=== PATIENT | male | born 1945 | race African-American/Black ===

== ENCOUNTER 2022-11-11 17:55 | Emergency (ER) | payer MEDICARE ==
[~2022-11-11] VITALS: Ht 185.4 cm; Wt 82.0 kg
[2022-11-11 18:07] VITALS: BP 150/94
[2022-11-11] MEDS ORDERED: ACETAMINOPHEN 325MG TABLET PO ONE (18:45)
[2022-11-11] MEDS ORDERED: LIDOCAINE HCL 1% 20ML VIAL (Pyxis) INJ INFIL ONE (18:45)
== END 2022-11-11 21:25 | disposition home or self-care (01) ==
LOC: ER 17:55
DX: S01.511A Laceration without foreign body of lip, initial encounter (principal); S09.90XA Unspecified injury of head, initial encounter; Z88.0 Allergy status to penicillin; W01.0XXA Fall on same level from slipping, tripping and stumbling without subsequent striking against object, initial encounter; Y93.89 Activity, other specified; Y92.89 Other specified places as the place of occurrence of the external cause; Y99.8 Other external cause status
CPT/HCPCS: 12013; 70450; 99284; J3490

== ENCOUNTER 2023-02-22 09:31 | Emergency (ER) | payer MEDICARE, MEDICAID, OTHER ==
[~2023-02-22] VITALS: Ht 190.5 cm; Wt 82.0 kg
[2023-02-22 09:51] VITALS: BP 125/82; O2SAT 100
[2023-02-22] MEDS ORDERED: IBUP-2028 MT (11:44)
[2023-02-22 11:53] VITALS: PULSE 74; RESP 16; TEMP 98.3
== END 2023-02-22 11:56 | disposition home or self-care (01) ==
LOC: ER 10:40
DX: M70.31 Other bursitis of elbow, right elbow (principal); I10 Essential (primary) hypertension; Z88.0 Allergy status to penicillin
CPT/HCPCS: 99281; 99282